=== PATIENT | female | born 1945 | race Caucasian/White ===

== ENCOUNTER 2016-07-11 12:40 | Day surgery (SDC) | payer MEDICARE, OTHER ==
[~2016-07-11] VITALS: Ht 154.9 cm; Wt 56.0 kg
[~2016-07-11 12:40] MED LIST: 0.9% Sodium Chloride 1,000 ML IV PRN; CALC-1001 PO; Sodium Chloride LOK Flush 10 mL Syringe IV PRN; fentaNYL-PF 50 mCg/mL 2 mL Inj IVPUSH PRN
[2016-07-11] MEDS ORDERED: ATRV10T PO (13:34)
[2016-07-11] MEDS ORDERED: LOSA50TA37 PO (13:34)
[2016-07-11] MEDS ORDERED: ALBU8.5H2 INHALATION (13:34)
[2016-07-11] MEDS ORDERED: ASPI-973 PO (13:34)
[2016-07-11] MEDS ORDERED: MONT10TA23 PO (13:34)
[2016-07-11] MEDS ORDERED: MULT-1018 PO (13:34)
[2016-07-11 13:36] VITALS: BP 149/73; PULSE 71; RESP 14; O2SAT 98
--- NOTE | 2016-07-11 14:55 | PCM.ENDCOL ---
Colonoscopy Date of Service: Jul 11, 2016 Physician Anibal Bennett MD Pre Procedure Diagnosis: Screening Post Procedure Dx & Findings: Polyp hemorrhoids Procedure Colonoscopy Prep adequate Withdrawal time 13 minutes After unremarkable rectal examination the Olympus video colonoscope was inserted patient's anal canal and was advanced to cecum. Landmarks were identified including the ileocecal valve and appendiceal orifice. Scope was withdrawn systematically. Visualized colonic mucosa showed healthy shiny mucosa with normal healthy-appearing vasculature. In the ascending colon, there were total of 5 polyps. 2 were 1 mm in size and these were removed using cold forceps. There were 3 which were 3 mm in size. These were all removed completely using cold snare. In the transverse colon, there was a 1 mm polyp which was removed completely using cold forcep. In the rectum retroflexion was done which showed hemorrhoids. Anal canal was inspected carefully on the way out and hemorrhoids noted. Impression Polyps 6 status post complete removal Hemorrhoids Recommendation Repeat colonoscopy 3 years Presedation Assessment Risks and Benefits Informed consent was obtained from the patient after all risks and benefits including but not limited to drug reaction, infection, pain, bleeding, perforation, as well as alternatives were discussed. Patient monitoring Continuous pulse oximetry, cardiac monitoring, blood pressure monitoring, IV access, and oxygen at 2L per nasal cannula. Periprocedural Fentanyl: Fentanyl 100mcg Incrementally Midazolam: Midazolam 5mg Incrementally Complications There were no periprocedural complications identified. Post Procedure Plan Post Procedure Recommendations 1. Restrict activities today. 2. Resume normal activities in the morning. 3. Resume medications. 4. Patient informed of normal post procedure side effects as bloating, drowsiness, blood streaking in the stool. 5. average risk CRCS. If colon polyps come back as: -Hyperplastic- can repeat colonoscopy in 10 years -Tubular adenoma- repeat colonoscopy in 5 years -Tubulovillous/villous adenoma- repeat colonoscopy in 3 years -If any dysplasia- return to clinic as soon as possible 6. Please don't hesitate to call me with any questions. Anibal Bennett MD Jul 11, 2016 14:55
[2016-07-11 14:57] VITALS: BP 133/56; PULSE 58; O2SAT 98
[2016-07-11 15:06] VITALS: BP 121/56; PULSE 57; RESP 15; O2SAT 98
[2016-07-11 15:16] VITALS: BP 131/63; PULSE 55; RESP 17; O2SAT 99
--- NOTE | 2016-07-13 14:22 | PATH ---
SURGICAL PATHOLOGY Attending Physician:Anibal Bennett M.D. CASE STATUS: Signed Out PATIENT NAME: NADER JENNINGS PID: [id number] : 1945 DATE COLLECTED:07/11/2016 00:00 SPECIMEN: 1: Colon, Biopsy 2: Colon, Biopsy CLINICAL HISTORY: 1). ASCENDING COLON POLYP X5 2). TRANSVERSE COLON POLYP X1 FINAL DIAGNOSIS: 1. Ascending Colon Polyps: Tubular adenoma involving multiple biopsy fragments. Sessile serrated adenoma involving two biopsy fragments. 2. Transverse Colon Polyp: Sessile serrated adenoma. ICD10: D12.2 GROSS DESCRIPTION: The specimen is received in two formalin filled containers labeled with the patient's name. 1). The specimen is sublabeled "ascending colon polyps" and consists of multiple portions of tissue which aggregate to 0.7 x 0.6 0.4 CM. The specimen is entirely submitted in cassette 1A. 2). The specimen is sublabeled "transverse colon polyp" and consists of a 0.3 x 0.2 x 0.2 CM portion of tissue which is entirely submitted in cassette 2A. 07/12/2016 [facility] [place] ICD-9 CODES: CPT CODES: 1: 08132 2: 61168 Electronically Signed Out Jose Drummond MD [facility] Pathology [facility] [address] [place] [address] Technical component performed at [facility], [address] [place] [address] Ave[address], [place], [address]
== END 2016-07-11 23:59 | disposition home or self-care (01) ==
LOC: END 12:40
PROVIDERS: ATTEND Internal Medicine
DX: Z12.11 Encounter for screening for malignant neoplasm of colon (principal); D12.2 Benign neoplasm of ascending colon; D12.3 Benign neoplasm of transverse colon; K64.8 Other hemorrhoids; J45.909 Unspecified asthma, uncomplicated; E78.00 Pure hypercholesterolemia, unspecified; M85.80 Other specified disorders of bone density and structure, unspecified site; Z87.891 Personal history of nicotine dependence; Z79.51 Long term (current) use of inhaled steroids; Z79.82 Long term (current) use of aspirin
CPT/HCPCS: 45380; 45385; 88305; 99153; G0500; J2250; J3010; J7030